=== PATIENT | female | born 1980 | race Caucasian/White ===

== ENCOUNTER → 2020-10-30 | Outpatient (CLI) | payer OTHER ==
[~2020-10-30] MED LIST: ANTOXYBENA LEFTEAR; NEOPOLHCSU LEFTEAR; Ultram50 MG PO
[2020-10-31 10:52] LABS: Candida species (DNA Probe) Positive (NEGATIVE); G. vaginalis (DNA Probe) Positive (NEGATIVE); T. vaginalis (DNA Probe) Negative (NEGATIVE)
== END | disposition home or self-care (01) ==
LOC: LAB 15:00 → LAB SHORT 15:00
PROVIDERS: Nurse Practitioner Family
DX: L29.8 Other pruritus (principal)
CPT/HCPCS: 87070; 87086; 87205; 87480; 87510; 87660